=== PATIENT | female | born 1975 ===

== ENCOUNTER 2023-04-19 12:08 | Outpatient (AMB) | payer OTHER, SELFPAY ==
--- NOTE | 2023-04-19 14:23 | AM.OFFWIN_ITS ---
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 Patient presents for a sick visit. Reporting symptoms of sinus congestion, sore throat and difficulty swallowing. Low-grade fever. No family member is sick. No recent travel. Patient reports symptoms of malaise and fatigue. Patient is also having congestion in the left eye. [facility] Social History Patient Tobacco Use Status: Never used Tobacco Physical Exam Vital Signs: Last Vital Signs Temp 97.8 F 04/19/23 14:37 Pulse 79 04/19/23 14:37 BP 128/78 04/19/23 14:37 Pulse Ox 97 04/19/23 14:37 Oxygen Delivery Method Room Air 04/19/23 14:37 BMI result Body Mass Index 37.5 Const General: cooperative and healthy appearing Nutritional Appearance: well nourished Orientation/consciousness: patient oriented x3 Limitations: no limitations HEENT Head: Yes normal to inspection Eyes Other: Left eye: Bulbar conjunctiva is congested. Corneas clear. Anterior chambers clear. Neck Neck: Yes normal visual inspection Chest Chest palpation & inspection: normal palpation of entire chest wall Resp Effort & Inspection: normal respiratory effort Neuro General: patient oriented x3 Assessment & Plan Assessment & Plan (1) Upper respiratory tract infection: Code(s): J06.9 - Acute upper respiratory infection, unspecified Plan: Azithromycin and erythromycin ointment have been called in. Increase fluid intake. Coding Level of Care Code Est Pt Level 4 (47083) Diagnoses Upper respiratory tract infection J06.9
[2023-04-19 14:37] VITALS: BP 128/78; PULSE 79; TEMP 36.6; O2SAT 97; BMI 37.5
== END 2023-04-19 15:17 | disposition home or self-care (01) ==
PROVIDERS: Visit Provider Internal Medicine
DX: J06.9 Acute upper respiratory infection, unspecified (principal)
CPT/HCPCS: 99214